=== PATIENT | female | born 1960 | race Caucasian/White ===

== ENCOUNTER 2020-01-11 08:55 | Emergency (ER) | payer OTHER ==
--- NOTE | 2020-01-11 09:18 | TELE ---
HPI Do you have fever,cough or shortness of breath?: No - General Reason For Visit: COVID 19 TEST History Source: Patient Exam Limitations: No Limitations Past History - Travel History Traveled outside of the country in the last 30 days: No Close contact w/someone who was outside of country & ill: No Review of Systems - Review of Systems Able to Perform ROS?: Yes Comments:: 01/11/20 09:16 CONSTITUTIONAL: Absent: fever, chills, diaphoresis, generalized weakness, malaise, loss of appetite HEENT: Absent: rhinorrhea, nasal congestion, throat pain, throat swelling, difficulty swallowing, mouth swelling, ear pain, eye pain, visual Changes CARDIOVASCULAR: Absent: chest pain, loss of consciousness, palpitations, irregular heart rate, peripheral edema RESPIRATORY: Absent: cough, shortness of breath, dyspnea with exertion, orthopnea, wheezing, stridor, hemoptysis GASTROINTESTINAL: Absent: abdominal pain, abdominal distension, nausea, vomiting, diarrhea, constipation, melena, hematochezia SKIN: Absent: rash, itching, pallor NEUROLOGIC: Absent: headache, focal weakness or paresthesias, dizziness, unsteady gait, seizure, mental status changes, bladder or bowel incontinence PSYCHIATRIC: Absent: anxiety, depression, suicidal or homicidal ideation, hallucinations. Limited Tristanian proficient: No *Physical Exam - Physical Exam 01/11/20 09:16 GENERAL: Well developed, well nourished. Awake and alert. No acute distress. PULMONARY: No evidence of respiratory distress. NEUROLOGICAL: Alert, awake, appropriate. PSYCHIATRIC: Cooperative. Good eye contact. Appropriate mood and affect. - Medical Decision Making 01/11/20 09:17 The patient is a 59-year-old female no past medical history who presents to virtual urgent care for a COVID swab. She states that she needs a negative test prior to visiting her father in assisted living. She has not had any symptoms in the past 14 days of COVID. She states that she has not had any known exposures and she wears her PPE. A/P: Need for COVID swab Virtual video chat unable to be performed as patient's cell phone camera was broken at the time. Patient received a phone call and the visit was conducted over the phone. Patient in no acute distress on the phone. We will order COVID swab and sent to [facility]. Discharge Diagnosis at time of Disposition: Counseled about COVID-19 virus infection - Referrals - Patient Instructions Discharge Instructions: [facility] COVID-19 Isolation Protocol
== END 2020-01-11 09:18 | disposition home or self-care (01) ==
LOC: JVIRT 08:55
DX: Z11.59 Encounter for screening for other viral diseases (principal)
CPT/HCPCS: Q3014-GT; U0003